=== PATIENT | female | born 1980 | race Caucasian/White ===

== ENCOUNTER 2017-04-17 09:21 | Emergency (ER) | payer SELFPAY ==
--- NOTE | 2017-04-17 09:34 | ERNOTE ---
Lower Extremity HPI - General Lower Extremities Pain: ankle: right Time Seen by Provider: 04/17/17 09:21 Source: patient Exam Limitations: no limitations - Immun/Allergies/Home Medications Allergies/Adverse Reactions: Allergies Allergy/AdvReac Type Severity Reaction Status Date / Time No Known Allergies Allergy Unverified 04/17/17 09:42 Home Medications: HOME MEDICATIONS oxyCODONE HCL/ACETAMINOPHEN [Percocet 5 MG/325 MG] 1 tab PO Q4H PRN #30 tab [Last Taken Unknown] - History of Present Illness Narrative: Patient reports that just prior to arrival she was walking down stairs, missed a step or two and twisted her right ankle. She denies falling nor any other injuries. she was able to take a few steps initially, arriving by ambulance. She admits to having 4-5 beer every night, had two at the bar around 01:00. Date (Duration): 04/17/17 Occurred: just prior to arrival Location of Incident: home Method of Injury: Reports: twisted Reason for Fall: Reports: lost balance Loss of Consciousness: Reports: no loss of consciousness Modifying Factors - (Improves): Reports: immobilization, rest Modifying Factors - (Worsens): Reports: movement Associated Symptoms: Reports: popping sensation Other Injuries: Reports: none Subsequent Symptoms: Denies: sensory loss, numbness Prior Treament: Denies: recently seen, similar symptoms before Review of Systems - Review of Systems Constitutional: Absent: recent illness, fever EYE: Absent: vision changes Respiratory: Absent: shortness of breath Cardiology: Absent: chest pain Gastrointestinal/Abdominal: Absent: nausea, abdominal pain Genitourinary: Present: no symptoms reported Musculoskeletal: Present: See HPI Neurological: Absent: headache, weakness, numbness - Patient's Past Medical History Patient History - Medical: Alcohol Abuse Patient History - Cardiac/Respiratory: No pertinent hx Patient History - Cancer: No Hx of Cancer Patient History - Surgical Procedures: Appendectomy, Orthopedic LMP (females 10-50): spotting, has IUD - Social History Living Situations: home Smoking Status: Current every day smoker Cigarettes Packs Per Day: 1 Alcohol Use: heavy - 4-5 beer daily Drug Use: marijuana - Immunizations Immunizations Up to Date: No Physical Exam - Physical Exam General Appearance: Present: wd/wn, alert, no apparent distress, obese Head Exam: Present: normal inspection, no evidence of injury Eye Exam: Normal inspection: bilateral, PERRL: bilateral, EOMI: bilateral Ears, Nose, Throat: Present: normal pharynx Neck: Present: normal inspection, nontender, supple Respiratory: Present: no respiratory distress, normal breath sounds, no accessory muscle use, chest nontender, lungs clear Cardiovascular/Chest: Present: regular rate, rhythm, no murmur Gastrointestinal/Abdominal: Present: normal bowel sounds, nontender, nondistended Back Exam: Present: normal inspection, no vertebral tenderness Extremity Exam: Present: normal except - - right ankle deformity, posterior tibial pulse present with doppler, unable to doppler dorsal pedal pulse Neurological Exam: Present: alert, oriented, normal mood/affect, no motor/ sensory deficits Skin Exam: Present: normal color, warm/dry, other - superficial abrasion over forefoot ED Progress - Results and Orders Patient's Lab Results:: I have reviewed the patient's lab results. - Vital Signs Patient's Vital Signs:: I have reviewed the patient's vital signs. Vital Signs: Vital Signs 04/17/17 09:22 Temperature 36.5 C Pulse Rate 123 H Respiratory 16 Rate Blood Pressure 138/103 O2 Sat by Pulse 94 Oximetry - X-Ray X-Ray #1 X-Ray: ankle - distal tib/ fib fracture dislocation Interpretation: Interp. by me X-Ray #2 X-Ray: ankle - improved alignment post reduction Interpretation: Interp. by me X-Ray #3 X-Ray: ankle - adequate alignment post casting Interpretation: Reviewed by me - Progress/Reassessment Chief Complaint: Ankle Injury/ Pain Progress Note-Subjective: 04/17/17 09:45 with foot reduction dorsal pedal pulse found with doppler 04/17/17 09:[address] Herman in surgery, will see patient in ER 04/17/17 10:03 patient comfortable post reduction and splinting 04/17/17 10:[address], discussed follow up, encouraged to reduce ETOH intake use walker Departure Clinical Impression: ETOH abuse Dislocation of ankle, right, closed Qualifiers: Encounter type: initial encounter Qualified Code(s): S93.04XA - Dislocation of right ankle joint, initial encounter Fracture of distal end of fibula Qualifiers: Encounter type: initial encounter Fracture type: closed Fracture morphology: unspecified fracture morphology Laterality: right Qualified Code(s): S82.831A - Other fracture of upper and lower end of right fibula, initial encounter for closed fracture - Departure Disposition: Home self-care Condition: Fair Instructions: Ankle Fracture, [id number] Additional Instructions: do not put any weight on the right leg Referrals: Eric Herman MD [Staff Physician] - 04/21/17 8:45 am Prescriptions: oxyCODONE HCL/ACETAMINOPHEN [Percocet 5 MG/325 MG] 1 tab PO Q4H PRN #30 tab PRN Reason: Pain
[2017-04-17] MEDS ORDERED: DIPHTH,PERTUSS(ACELL),TET VAC 0.5 ML VIAL IM ONE ×2 (09:37→10:38)
[2017-04-17 09:56] LABS: Hematocrit 45.7 % (37.0-47.0); Hemoglobin 14.4 gm/dL (12.5-16.0); Mean Cell Volume 82.3 fl (78-100); Mean Corpuscular Hemoglobin 25.9 pg (27-31); Mean Corpuscular Hgb Conc 31.5 g/dl (32-36); Mean Platelet Volume 8.8 fl (6.0-9.5); Platelet Count 304 K/mm3 (150-450); Red Blood Count 5.55 M/mm3 (4.2-5.4); Red Cell Distribution Width 18.2 % (11.5-14.0); White Blood Count 12.1 K/mm3 (4.0-10.5)
[2017-04-17 10:04] LABS: Total Cells Counted 100
[2017-04-17 10:16] LABS: Albumin * 2.9 gm/dl (3.4-5.0); Anion Gap 17.9 mmol/L (6.8-13.8); BUN/Creatinine Ratio 6.8 (9.0-21.6); Bilirubin, Total 0.2 mg/dL (0.0-1.1); Ca. Corrected For Albumin 9.2 mg/dL (8.4-10.2); Calcium * 8.6 mg/dL (7.9-10.9); Carbon Dioxide 21.8 mmol/L (24-32.6); Potassium 3.7 mmol/L (3.4-4.6)
[2017-04-17 10:32] LABS: Band 3 % (0-2.0); Basophil 1 % (0-1); Eosinophil 2 % (0-3); Immature Granulocyte 1 (0-1); Lymphocyte 32 % (20-51); Macrocytosis 1+; Monocyte 4 % (0-9); Neutrophil 57 % (42-75); Neutrophil # 6.9 K/mm3 (1.3-6.0); Platelet Estimate Normal (NORMAL)
--- NOTE | 2017-04-17 11:05 | CONS ---
HPI - General Date of Service: 04/17/17 Narrative: Mrs. Mcmanus is a 36-year-old female who was at home intoxicated when she tripped and twisted her ankle while going down some stairs. She had immediate deformity and inability to weight-bear. She is brought in by [facility] the emergency department and evaluated which time she was found to have a dislocated ankle. She did minimal pulses and was subsequently reduced with improved perfusion. She is initially splinted by the emergency room staff and resplinted by myself. She states that she's had prior ankle injury and the side that was treated nonoperatively as well as some podiatry procedure for what sounds like an enthesophyte. She is otherwise active with no other complaints of ankle pain prior to this. Source: patient Exam Limitations: intoxication - History of Present Illness Timing/Duration: 1-3 hours Severity: moderate Modifying Factors - (Worsens): Reports: movement Modifying Factors - (Improves): Reports: immobilization Associated Symptoms: denies symptoms Allergies/Adverse Reactions: Allergies No Known Allergies Allergy (Unverified 04/17/17 09:42) - Patient's Past Medical History Patient History - Medical: Alcohol Abuse Patient History - Cardiac/Respiratory: No pertinent hx Patient History - Cancer: No Hx of Cancer Patient History - Surgical Procedures: Appendectomy, Orthopedic Patient History - Other: None LMP (females 10-50): spotting, has IUD - Social History Living Situations: home Psych History: No pertinent hx Smoking Status: Current every day smoker Cigarettes Packs Per Day: 1 Have you smoked in the past 12 months: Yes Alcohol Use: heavy - 4-5 beer daily Drug Use: marijuana - Immunizations Immunizations Up to Date: No History of Influenza Vaccine: No Review of Systems - Review of Systems Generalized/Overall Review: Present: No Symptoms Reported Physical Examination - Exam Narrative: She's resting in bed. She smells of alcohol Right lower extremity: Small abrasion over the anterior medial ankle, no lacerations or traumatic skin tears, no ecchymosis or blisters at this time. Sensation is intact light touch. She is a palpable dorsalis pedis pulse although faint but she has good perfusion with brisk cap refill. She is able to flex and extend her toes and pain with any ankle motion. Vital Signs: Vital Signs - Last Taken Temp 36.5 C 04/17/17 09:22 Pulse 118 H 04/17/17 09:50 Resp 20 04/17/17 09:50 BP 130/94 04/17/17 09:50 Pulse Ox 93 04/17/17 09:50 O2 Oxygen Delivery Method Room Air Constitutional: Present: Alert, Oriented x3 - Results and Findings: Narrative: Two-view pre-reduction into view post reduction ankle: Posterior lateral ankle fracture dislocation with West B fibula fracture. With reduction there does not appear to be any medial malleolus fracture however there is clinical and radiographic signs that she disrupted her deltoid. There does not appear to be any posterior malleolus or any other associated fractures. Lab/Microbiology results last 24 hrs: Abnormal/Pending Laboratory Last 24 HRS 04/17/17 04/17/17 09:55 09:55 WBC 12.1 H RBC 5.55 H MCH 25.9 L MCHC 31.5 L RDW 18.2 H Band Neuts % (Manual) 3 H Neutrophils # (Manual) 6.9 H Lymphocytes # (Manual) 3.9 H Carbon Dioxide 21.8 L Anion Gap 17.9 H BUN/Creatinine Ratio 6.8 L Random Glucose 115 H AST 67 H ALT 69 H Albumin 2.9 L Ethyl Alcohol 291.0 H - Assessments/Findings (1) Dislocation of ankle, right, closed Diagnosis(s): Plan is to continue nonweightbearing right lower extremity. She was instructed to ice and elevate. She needs to utilize crutches or a walker for mobility. She is to follow up next week for skin check with the plan for surgical fixation in the future. We reinforced the importance of ice and elevate and keeping the splint dry. Problem: Acute Qualifiers: Encounter type: initial encounter Qualified Code(s): S93.04XA - Dislocation of right ankle joint, initial encounter (2) Fracture of distal end of fibula Problem: Acute Qualifiers: Encounter type: initial encounter Fracture type: closed Fracture morphology: unspecified fracture morphology Laterality: right Qualified Code (s): S82.831A - Other fracture of upper and lower end of right fibula, initial encounter for closed fracture
[2017-04-17 11:28] VITALS: BP 160/90
== END 2017-04-17 11:28 | disposition home or self-care (01) ==
LOC: ER 09:21
PROC: 0QSJXZZ Reposition Right Fibula, External Approach (ICD-10-PCS; principal; 2017-04-17)
PROC: 2W3QX1Z Immobilization of Right Lower Leg using Splint (ICD-10-PCS; 2017-04-17)
DX: S93.04XA Dislocation of right ankle joint, initial encounter (principal); S82.831A Other fracture of upper and lower end of right fibula, initial encounter for closed fracture; W10.8XXA Fall (on) (from) other stairs and steps, initial encounter; Y92.008 Other place in unspecified non-institutional (private) residence as the place of occurrence of the external cause; F17.200 Nicotine dependence, unspecified, uncomplicated; Z23 Encounter for immunization; S90.819A Abrasion, unspecified foot, initial encounter
CPT/HCPCS: 27788; 29515; 36415; 73600; 73610; 80053; 85007; 85025; 90471; 90715; 99284; G0481

== ENCOUNTER 2017-04-24 11:12 | Day surgery (SDC) | payer BC ==
[~2017-04-24 11:12] MED LIST: RINGER'S SOLUTION,LACTATED 1,000 ML IV PRN; ceFAZolin SODIUM 1 GM VIAL IV PRN
[2017-04-24] MEDS ORDERED: RINGER'S SOLUTION,LACTATED 1,000 ML IV ONE ×2 (11:40→12:30)
[2017-04-24] MEDS ORDERED: RINGER'S SOLUTION,LACTATED 900 ML IV ONE (12:10)
[2017-04-24] MEDS ORDERED: BUPIVACAINE HCL 50 ML VIAL IJ ONE (13:53)
--- NOTE | 2017-04-24 14:18 | OR ---
Operative Report - Dictated Report Narrative: Date: 04/24/2017 Surgeon: Eric Herman M.D. Senior Major Gifts Officer: Kavin Vasquez PA-C Anesthesia: Spinal plus local Preoperative diagnosis: Right fibula Fracture ankle dislocation. Postoperative diagnosis: Right ankle fracture dislocation of the fibula with syndesmotic disruption, deltoid disruption, calcaneofibular ligament disruption. Procedure: 1. Open reduction internal fixation right fibula fracture. 2. Open syndesmotic stabilization 3. Intra-operative interpretation of radiographs. Estimated blood loss: None Tourniquet time: 68 Minutes at 300 millimeters mercury Retained implants: [employer] VLP 6-hole distal fibular plate with associated screws on the fibula, 50 mm 3.5 mm screws 2 across the syndesmosis Specimens: None Complications: None Indications: Mrs. Mcmanus is a 36-year-old female who slipped and fell twisting her ankle resulting right ankle fracture dislocation. They were seen in the emergency department with images obtained revealing the above injury. They were seen in clinic where the skin was examined and felt to be amenable to surgical treatment. The risks, benefits, and treatment options were discussed with the patient and the plan for open reduction internal fixation was discussed. Risks were reviewed including , blood clots, nerve/tendon/blood vessel injury, malunion, nonunion, failure of implants, prominent implants, arthrosis, persistent pain, need for additional procedures. Procedure: After a timeout, anesthetic consisting of Ancef was administered. A spinal anesthetic was induced. Beanbag was utilized in order bump the operative leg and a well-padded tourniquet was applied to the operative thigh. The splint was removed and the leg was pre-scrubbed with chlorhexidine then prepped and draped in a standard sterile fashion. The extremity was exsanguinated and tourniquet was inflated. Attention was then turned to the lateral malleolus. A posterior lateral incision was made over the fibular fracture. Subcutaneous dissection was carried down to the fibula protecting the superficial peroneal nerve. The fracture was identified and was noted to be oblique posterior to anterior West B. After preparing the bony edges and reducing the fracture, a pointed reduction clamp was utilized in order to stabilize the fracture. Mini C -arm was used in order to confirm the appropriate placement and length of the implants. Care was taken to avoid placing screws into the ankle joint and the syndesmosis. The ankle was stressed and was noted that there is syndesmotic instability as well as previously identified deltoid disruption. With this reason 2 syndesmotic screws were placed across the syndesmotic joint with the ankle reduced and stabilized with a pointed reduction clamp. This was done utilizing any C-arm for visualization. The ankle was then placed through a range of motion and had no significant crepitance. The syndesmosis was stressed and was noted to be stable. The mortise was symmetrical and intact. The wounds were then thoroughly irrigated. Subcutaneous tissue was repaired over the implants utilizing 3-0 Vicryl. The skin was closed utilizing 3-0 nylon. 0.5% Marcaine without epinephrine was infused around the skin edges. Xeroform, 4 x 4's, soft roll, and a well-padded AO splint was applied. Patient was then awoken and transferred to postanesthesia care in stable condition. All sponge, sharp, and instrument counts were correct prior to closing the wounds.
[2017-04-24] MEDS ORDERED: RINGER'S SOLUTION,LACTATED 1,000 ML IV PRN (15:23)
[2017-04-24] MEDS ORDERED: oxyCODONE HCL/ACETAMINOPHEN 1 TAB TABLET PO PRN (15:23)
[2017-04-24] MEDS ORDERED: HYDROmorphone HCL 2 MG/ML VIAL IV PRN (15:24)
[2017-04-24 16:09] VITALS: BP 104/83
== END 2017-04-24 11:13 | disposition home or self-care (01) ==
LOC: AMB 11:12
PROVIDERS: ATTEND Orthopaedic Surgery
PROC: 0QSJ04Z Reposition Right Fibula with Internal Fixation Device, Open Approach (ICD-10-PCS; principal; 2017-04-24 13:55)
DX: S82.891A Other fracture of right lower leg, initial encounter for closed fracture (principal); S93.411A Sprain of calcaneofibular ligament of right ankle, initial encounter; S93.421A Sprain of deltoid ligament of right ankle, initial encounter; F17.210 Nicotine dependence, cigarettes, uncomplicated; Z68.41 Body mass index [BMI] 40.0-44.9, adult; W10.9XXA Fall (on) (from) unspecified stairs and steps, initial encounter

== ENCOUNTER 2017-08-14 08:51 | Day surgery (SDC) | payer BC ==
[~2017-08-14 08:51] MED LIST changes: +HYDROmorphone HCL 2 MG/ML VIAL IV PRN
[2017-08-14] MEDS ORDERED: RINGER'S SOLUTION,LACTATED 1,000 ML IV ONE ×2 (09:16→10:40)
[2017-08-14] MEDS ORDERED: BUPIVACAINE HCL 50 ML VIAL IJ ONE (10:43)
--- NOTE | 2017-08-14 11:03 | POSTOP NO ---
Date of Surgery: 08/14/17 Patient Tolerated the Procedure: Well Post Operative Diagnosis/Procedures: Inside Barrel Polisher: None Post-operative Diagnosis: Painful retained implants right ankle Finding: Above Procedure: Removal of deep implants right ankle Estimated Blood Loss: Minimal Specimens: Implants to return the patient
--- NOTE | 2017-08-14 11:05 | OR ---
Operative Report - Dictated Report Narrative: Date: 08/14/2017 Surgeon: Eric Herman M.D. Displayer: None Preoperative diagnosis: Painful retained implants right ankle Postoperative diagnosis: Painful retained implants right ankle Operation: 1 - Removal of deep implants right fibula 2 - Intraoperative interpretation of x-rays Retained implants: None Anesthesia: Spinal plus local Tourniquet time: 25 Minutes at 275 mmHg Estimated blood loss: Minimal Drains: None Specimen: Implants for return to patient Complications: None Indications: Mrs. Mcmanus is a 36-year-old female who previously underwent over reduction internal fixation of right fibula and syndesmosis and subsequently developed pain related to the implants. They've gone on to heal the fracture however had notable symptoms related to the implants and wished to have these removed.. They were seen in the clinic and discuss the options for treatment. She wished to proceed with surgical removal of deep implants. The risks and benefits alternatives were discussed. Risks of , blood clots, bleeding, infection, nerve/tendon/blood vessel injury, persistent pain, wound complications, and need for additional procedures were discussed. Consent was obtained in the clinic. Procedure: After marking the correct extremity in the preoperative holding area, the patient was taken to the operating room. A timeout was performed. IV antibiotics consisting of Ancef were administered. Adequate anesthesia was placed. The extremity was then prepped and draped in standard sterile fashion. Utilizing the prior incision, sharp dissection was carried through the skin after exsanguinating extremity and inflating tourniquet. Careful dissection was carried down to the implants. The implants were then removed without complication. There did not appear to be any complications related to the fracture nor any signs of infection. Once all the implants were removed, the wound was thoroughly irrigated. A prominent bone was removed and the soft tissues were closed in a layered fashion with 3-0 Vicryl and the skin was closed with 3-0 Vicryl and 3-0 nylon. Final images were obtained with mini C- arm. Sterile dressings of Xeroform, 4 x 4, soft roll, Coban. 0.5% Marcaine without epinephrine was infused into the skin edges prior to placing dressings. All sponge, needle, sharp, and instrument counts were correct prior to closing the wound. The patient was awoken and transferred to the postanesthesia care in stable condition.
[2017-08-14] MEDS ORDERED: HYDROcodone/ACETAMINOPHEN 1 EACH TABLET PO PRN (11:45)
[2017-08-14 12:37] VITALS: BP 128/85
== END 2017-08-14 08:52 | disposition home or self-care (01) ==
LOC: AMB 08:51
PROVIDERS: ATTEND Orthopaedic Surgery
PROC: 0QPJ04Z Removal of Internal Fixation Device from Right Fibula, Open Approach (ICD-10-PCS; principal; 2017-08-14)
DX: Z68.41 Body mass index [BMI] 40.0-44.9, adult; T84.84XA Pain due to internal orthopedic prosthetic devices, implants and grafts, initial encounter; S82.62XD Displaced fracture of lateral malleolus of left fibula, subsequent encounter for closed fracture with routine healing; F17.210 Nicotine dependence, cigarettes, uncomplicated